=== PATIENT | female | born 1980 | race Caucasian/White ===

== ENCOUNTER 2017-06-20 18:47 | Emergency (ER) | payer BC ==
[~2017-06-20] VITALS: Ht 182.9 cm; Wt 148.0 kg
[~2017-06-20 18:47] MED LIST: VERA80TA5 PO
[2017-06-20 19:55] LABS: BASOPHILS % (AUTO) 0.3 % (0.0-2.0); EOSINOPHILS % (AUTO) 0.2 % (1.0-6.0); HEMATOCRIT 41.7 % (36-46); LYMPHOCYTES # (AUTO) 1.7 K/uL (1.0-4.8); LYMPHOCYTES % (AUTO) 17.8 % (22.0-44.0); MEAN CORPUSCULAR HEMOGLOBIN 30.1 pg (26.0-34.0); MEAN CORPUSCULAR HGB CONC 33.7 G/dL (31.0-37.0); MEAN CORPUSCULAR VOLUME 89 fL (80-100); MONOCYTES # (AUTO) 0.6 K/uL (0.1-1.0); MONOCYTES % (AUTO) 6.3 % (2.0-9.0); NEUTROPHILS # (AUTO) 7.3 K/uL (1.8-7.7); NEUTROPHILS % (AUTO) 75.4 % (40.0-70.0); PLATELET COUNT (AUTO) 243 K/uL (150-450); RED BLOOD CELL COUNT(AUTO) 4.67 MIL/uL (4.00-5.20); RED CELL DISTRIBUTION WIDTH 12.6 % (11.5-14.5)
[2017-06-20 20:10] LABS: PROTHROMBIN TIME 10.2 SEC (9.4-11.6)
[2017-06-20 20:13] LABS: APPEARANCE,URINE CLEAR (CLEAR); BILIRUBIN,URINE NEGATIVE (NEGATIVE); GLUCOSE, URINE (UA) NEGATIVE (NEGATIVE); KETONES,URINE NEGATIVE (NEGATIVE); LEUKOCYTE ESTERASE ,URINE NEGATIVE (NEGATIVE); NITRATE,URINE POSITIVE (NEGATIVE); OCCULT BLOOD,URINE TRACE (NEGATIVE); PROTEIN,URINE NEGATIVE (NEGATIVE); UROBILINOGEN,URINE 0.2 mg/dL (<=1.0)
[2017-06-20 20:14] LABS: AMPHET/METH SCREEN,URINE NEGATIVE (NEGATIVE); BARBITURATE SCREEN, URINE NEGATIVE (NEGATIVE); BENZODIAZEPINES SCREEN,URINE NEGATIVE (NEGATIVE); CANNABINOID SCREEN,URINE NEGATIVE (NEGATIVE); COCAINE SCREEN,URINE NEGATIVE (NEGATIVE); METHADONE SCREEN, URINE NEGATIVE (NEGATIVE); OPIATE SCREEN,URINE NEGATIVE (NEGATIVE); PHENCYCLIDINE SCREEN,URINE NEGATIVE (NEGATIVE)
[2017-06-20 20:19] LABS: ANION GAP 8 mmol/L (8-16); CALCIUM, TOTAL 9.2 mg/dL (8.8-10.5); CARBON DIOXIDE 30 mmol/L (22-29); CHLORIDE 102 mmol/L (98-107); CREATININE 0.73 mg/dL (0.60-1.30); GLOMERULAR FILTR. RATE CALC > 60 mL/min (>60); GLUCOSE,RANDOM 102 mg/dL (70-110); POTASSIUM 4.1 mmol/L (3.5-5.1); SODIUM SERUM 140 mmol/L (136-145); UREA NITROGEN, BLOOD 12 mg/dL (7-18)
[2017-06-20 20:36] LABS: BACTERIA,URINE Many /HPF (None Seen); RBC,URINE 0-2 /HPF (0-2)
[2017-06-20 20:37] LABS: SQUAMOUS EPITHELIAL CELL,UR Few /LPF (None Seen)
[2017-06-20 20:44] LABS: ALANINE AMINOTRANSFERASE 42 U/L (12-78); ALBUMIN 4.1 g/dL (3.4-5.0); ALKALINE PHOSPHATASE 71 U/L (46-116); ASPARTATE AMINOTRANSFERASE 26 U/L (15-37); BILIRUBIN,TOTAL 0.3 mg/dL (0.1-1.0); CREATINE KINASE MB 1.1 ng/mL (0-5); CREATINE KINASE, TOTAL 189 U/L (26-192); TOTAL PROTEIN, SERUM 7.5 g/dL (6.4-8.2)
[2017-06-20 20:52] LABS: B-TYPE NATRIURETIC PEPTIDE 7 pg/mL (0-100)
[2017-06-20] MEDS ORDERED: LORazepam 1 MG TABLET PO ONE (21:30)
[2017-06-20 21:33] VITALS: BP 123/78
== END 2017-06-20 21:51 | disposition home or self-care (01) ==
LOC: EMS 18:51
DX: R00.2 Palpitations (principal); R07.89 Other chest pain; I34.1 Nonrheumatic mitral (valve) prolapse; I25.10 Atherosclerotic heart disease of native coronary artery without angina pectoris; Z79.899 Other long term (current) drug therapy
CPT/HCPCS: 87086; 93005; 99285

== ENCOUNTER 2018-01-01 13:30 | Observation (INO) | payer BC ==
[~2018-01-01] VITALS: Ht 182.9 cm; Wt 87.5 kg
[2018-01-01] MEDS ORDERED: PREN1TAB80 PO (14:34)
[2018-01-01 14:35] VITALS: BP 117/56
[2018-01-01] MEDS ORDERED: RINGERS SOLUTION,LACTATED 1,000 ML IV SCH (14:45)
[2018-01-01 14:59] LABS: BASOPHILS % (AUTO) 0.2 % (0.0-2.0); EOSINOPHILS % (AUTO) 1.1 % (1.0-6.0); HEMATOCRIT 36.2 % (36-46); HEMOGLOBIN 12.3 g/dL (12.0-16.0); LYMPHOCYTES # (AUTO) 2.3 K/uL (1.0-4.8); LYMPHOCYTES % (AUTO) 20.1 % (22.0-44.0); MEAN CORPUSCULAR HGB CONC 34.1 G/dL (31.0-37.0); MEAN CORPUSCULAR VOLUME 94 fL (80-100); MONOCYTES # (AUTO) 0.8 K/uL (0.1-1.0); MONOCYTES % (AUTO) 7.1 % (2.0-9.0); NEUTROPHILS # (AUTO) 8.3 K/uL (1.8-7.7); NEUTROPHILS % (AUTO) 71.5 % (40.0-70.0); PLATELET COUNT (AUTO)-OB 240 K/uL (150-450); RED BLOOD CELL COUNT(AUTO) 3.85 MIL/uL (4.00-5.20); RED CELL DISTRIBUTION WIDTH 13.5 % (11.5-14.5)
[2018-01-01 15:17] LABS: ANION GAP 7 mmol/L (8-16); CALCIUM, TOTAL 8.5 mg/dL (8.8-10.5); CARBON DIOXIDE 27 mmol/L (22-29); CHLORIDE 105 mmol/L (98-107); CREATININE 0.56 mg/dL (0.60-1.30); GLOMERULAR FILTR. RATE CALC > 60 mL/min (>60); GLUCOSE,RANDOM 76 mg/dL (70-110); POTASSIUM 4.3 mmol/L (3.5-5.1); SODIUM SERUM 139 mmol/L (136-145); UREA NITROGEN, BLOOD 9 mg/dL (7-18)
[2018-01-01 15:23] LABS: ALANINE AMINOTRANSFERASE 24 U/L (12-78); ALBUMIN 2.3 g/dL (3.4-5.0); ALKALINE PHOSPHATASE 105 U/L (46-116); ASPARTATE AMINOTRANSFERASE 24 U/L (15-37); BILIRUBIN,TOTAL 0.2 mg/dL (0.1-1.0); TOTAL PROTEIN, SERUM 6.3 g/dL (6.4-8.2)
== END 2018-01-01 18:35 | disposition home or self-care (01) ==
LOC: 4S 13:30
PROVIDERS: ADMIT Obstetrics & Gynecology; ATTEND Obstetrics & Gynecology
DX: O36.8130 Decreased fetal movements, third trimester, not applicable or unspecified (principal); O26.893 Other specified pregnancy related conditions, third trimester; M54.31 Sciatica, right side; O09.523 Supervision of elderly multigravida, third trimester; Z3A.31 31 weeks gestation of pregnancy
CPT/HCPCS: 36415; 59025; 80053; 85025; G0378; J7120; 96360

== ENCOUNTER 2018-01-15 08:01 | Observation (INO) | payer BC ==
[~2018-01-15] VITALS: Ht 177.8 cm; Wt 89.8 kg
[~2018-01-15 08:01] MED LIST changes: +PREN1TAB80 PO
[2018-01-27 08:36] VITALS: BP 109/59
== END 2018-01-27 09:35 | disposition home or self-care (01) ==
LOC: 4S 01-27 08:05
PROVIDERS: ADMIT Obstetrics & Gynecology; ATTEND Obstetrics & Gynecology
DX: O09.523 Supervision of elderly multigravida, third trimester (principal); Z3A.34 34 weeks gestation of pregnancy
CPT/HCPCS: 59025; G0378

== ENCOUNTER 2018-01-31 08:10 | Observation (INO) | payer BC ==
[~2018-01-31] VITALS: Ht 182.9 cm; Wt 91.3 kg
[2018-01-31 08:35] VITALS: BP 101/62
== END 2018-01-31 09:35 | disposition home or self-care (01) ==
LOC: 4S 08:10
PROVIDERS: ADMIT Obstetrics & Gynecology; ATTEND Obstetrics & Gynecology
DX: O09.523 Supervision of elderly multigravida, third trimester (principal); Z3A.35 35 weeks gestation of pregnancy
CPT/HCPCS: 59025; 76805; G0378

== ENCOUNTER 2018-02-03 10:10 | Observation (INO) | payer BC ==
[~2018-02-03] VITALS: Ht 172.7 cm; Wt 90.7 kg
[2018-02-03 10:27] VITALS: BP 99/62
== END 2018-02-03 11:00 | disposition home or self-care (01) ==
LOC: 4S 10:10
PROVIDERS: ADMIT Obstetrics & Gynecology; ATTEND Obstetrics & Gynecology
DX: O09.523 Supervision of elderly multigravida, third trimester (principal); Z3A.36 36 weeks gestation of pregnancy
CPT/HCPCS: 59025; G0378

== ENCOUNTER 2018-02-07 11:08 | Observation (INO) | payer BC ==
[~2018-02-07] VITALS: Ht 177.8 cm; Wt 91.6 kg
[2018-02-07 11:58] VITALS: BP 106/62
== END 2018-02-07 12:20 | disposition home or self-care (01) ==
LOC: 4S 11:08
PROVIDERS: ADMIT Obstetrics & Gynecology; ATTEND Obstetrics & Gynecology
DX: O09.523 Supervision of elderly multigravida, third trimester (principal); Z3A.36 36 weeks gestation of pregnancy
CPT/HCPCS: 59025; 76805

== ENCOUNTER 2018-02-10 10:10 | Observation (INO) | payer BC ==
[~2018-02-10] VITALS: Ht 177.8 cm; Wt 90.7 kg
[2018-02-10 10:56] VITALS: BP 117/56
== END 2018-02-10 11:20 | disposition home or self-care (01) ==
LOC: 4S 10:10
PROVIDERS: ADMIT Obstetrics & Gynecology; ATTEND Obstetrics & Gynecology
DX: O09.523 Supervision of elderly multigravida, third trimester (principal); Z3A.36 36 weeks gestation of pregnancy
CPT/HCPCS: 59025; G0378

== ENCOUNTER 2018-02-14 16:08 | Observation (INO) | payer BC ==
[2018-02-14 16:39] VITALS: BP 116/62
[2018-03-05] MEDS ORDERED: PREN1TAB80 PO (15:37)
[2018-03-07] MEDS ORDERED: IBUP-2071 PO (11:54)
[2018-03-07] MEDS ORDERED: DSS100 PO (11:55)
== END 2018-02-14 17:20 | disposition home or self-care (01) ==
LOC: 4S 16:08
PROVIDERS: ADMIT Obstetrics & Gynecology; ATTEND Obstetrics & Gynecology
DX: O09.523 Supervision of elderly multigravida, third trimester (principal); Z3A.37 37 weeks gestation of pregnancy
CPT/HCPCS: 59025; 76805; G0378

== ENCOUNTER 2018-02-17 10:25 | Observation (INO) | payer BC ==
[~2018-02-17] VITALS: Ht 177.8 cm; Wt 93.0 kg
[2018-03-05] MEDS ORDERED: PREN1TAB80 PO (15:37)
[2018-03-07] MEDS ORDERED: IBUP-2071 PO (11:54)
[2018-03-07] MEDS ORDERED: DSS100 PO (11:55)
== END 2018-02-17 11:40 | disposition home or self-care (01) ==
LOC: 4S 10:25
PROVIDERS: ADMIT Obstetrics & Gynecology; ATTEND Obstetrics & Gynecology
DX: O09.523 Supervision of elderly multigravida, third trimester (principal); Z3A.37 37 weeks gestation of pregnancy
CPT/HCPCS: 59025; G0378

== ENCOUNTER 2018-02-21 10:10 | Observation (INO) | payer BC ==
[~2018-02-21] VITALS: Ht 177.8 cm; Wt 92.7 kg
[2018-02-21 10:52] VITALS: BP 108/66
[2018-03-05] MEDS ORDERED: PREN1TAB80 PO (15:37)
[2018-03-07] MEDS ORDERED: IBUP-2071 PO (11:54)
[2018-03-07] MEDS ORDERED: DSS100 PO (11:55)
== END 2018-02-21 11:15 | disposition home or self-care (01) ==
LOC: 4S 10:10
PROVIDERS: ADMIT Obstetrics & Gynecology; ATTEND Obstetrics & Gynecology
DX: O09.523 Supervision of elderly multigravida, third trimester (principal); Z3A.38 38 weeks gestation of pregnancy
CPT/HCPCS: 59025; 76805; G0378

== ENCOUNTER 2018-02-28 10:15 | Observation (INO) | payer BC ==
[~2018-02-28] VITALS: Ht 177.8 cm; Wt 92.1 kg
[2018-03-05] MEDS ORDERED: PREN1TAB80 PO (15:37)
[2018-03-07] MEDS ORDERED: IBUP-2071 PO (11:54)
[2018-03-07] MEDS ORDERED: DSS100 PO (11:55)
== END 2018-02-28 12:15 | disposition home or self-care (01) ==
LOC: 4S 10:15
PROVIDERS: ADMIT Obstetrics & Gynecology; ATTEND Obstetrics & Gynecology
DX: O09.523 Supervision of elderly multigravida, third trimester (principal); Z3A.39 39 weeks gestation of pregnancy
CPT/HCPCS: 76805; G0378

== ENCOUNTER 2024-08-23 20:59 | Emergency (ER) | payer BC, OTHER ==
[~2024-08-23] VITALS: Ht 177.8 cm; Wt 81.8 kg
[~2024-08-23 20:59] MED LIST changes: +DSS100 PO; +IBUP-1493 PO; +VERA80TA10 PO; -VERA80TA5 PO
[2024-08-23 21:46] LABS: BASOPHILS % (AUTO) 0.2 % (0.0-2.0); EOSINOPHILS % (AUTO) 0.2 % (1.0-6.0); LYMPHOCYTES # (AUTO) 1.4 K/uL (1.0-4.8); MONOCYTES # (AUTO) 0.4 K/uL (0.1-1.0); PLATELET COUNT (AUTO) 248 K/uL (150-450); RED CELL DISTRIBUTION WIDTH 12.9 % (11.5-14.5); WHITE BLOOD COUNT (AUTO) 11.3 K/uL (4.5-11.0)
[2024-08-23 21:49] LABS: HEMATOCRIT 41.9 % (36-46); LYMPHOCYTES % (AUTO) 12.4 % (22.0-44.0); MEAN CORPUSCULAR HEMOGLOBIN 29.6 pg (26.0-34.0); MEAN CORPUSCULAR HGB CONC 33.4 G/dL (31.0-37.0); MEAN CORPUSCULAR VOLUME 89 fL (80-100); MONOCYTES % (AUTO) 3.4 % (2.0-9.0); NEUTROPHILS # (AUTO) 9.5 K/uL (1.8-7.7); NEUTROPHILS % (AUTO) 83.8 % (40.0-70.0); RED BLOOD CELL COUNT(AUTO) 4.73 MIL/uL (4.00-5.20)
[2024-08-23 21:55] LABS: ANION GAP 6 mmol/L (8-16); CARBON DIOXIDE 30 mmol/L (22-29); CHLORIDE 99 mmol/L (98-107); CREATININE 0.77 mg/dL (0.60-1.30); GLOMERULAR FILTR. RATE CALC > 60 mL/min (>60); GLUCOSE,RANDOM 133 mg/dL (70-110); POTASSIUM 4.2 mmol/L (3.5-5.1); SODIUM SERUM 135 mmol/L (136-145); UREA NITROGEN, BLOOD 9 mg/dL (7-18)
[2024-08-24] MEDS: ACETAMINOPHEN 500 MG TABLET PO ONE (01:14)
[2024-08-24] MEDS: METOCLOPRAMIDE HCL 10 MG TABLET PO ONE (01:14)
[2024-08-24] MEDS: KETOROLAC TROMETHAMINE 30 MG/ML VIAL IM ONE (01:14)
[2024-08-24 01:20] VITALS: BP 129/88; PULSE 89; RESP 16; TEMP 97.9; O2SAT 98
== END 2024-08-24 02:07 | disposition home or self-care (01) ==
LOC: EMS 20:59
DX: G43.909 Migraine, unspecified, not intractable, without status migrainosus (principal); I25.10 Atherosclerotic heart disease of native coronary artery without angina pectoris; Z79.899 Other long term (current) drug therapy; Z79.1 Long term (current) use of non-steroidal anti-inflammatories (NSAID)
CPT/HCPCS: 99283; 80048; 85025; 36415; 96372; J1885